=== PATIENT | female | born 1955 | race African-American/Black ===

== ENCOUNTER → 2016-05-14 | Outpatient (CLI) | payer BC, OTHER ==
[~2016-05-14] MED LIST: "\\\"BP MED\\\""; ARIXTRA10 MG/0.8 SQ; ARTHROTEC 751 TAB.E2; BENICAR; BENICAR20 MG PO; CARDURA PO; CARDURA4 M1; CARDURA4 M1 PO; CIPRO PO; COUMADIN5 MG PO; IMODIUM A-D1 MG/5 ML PO; INDAPAMIDE1.25 MG PO; LOPERAMIDE HCL2 M1; LOZOL; LOZOL PO; MILK OF MAGNESIA PO; NORCO 5/325 TAB1 TAB PO; NORVASC; NORVASC PO; NORVASC10 MG PO; PROMETHAZI6.25 MG/5; ROBITUSSIN-DM118 M1 PO; TYLENOL325 M1 PO
--- NOTE | ~2016-05-14 | MY8 ---
[facility] A Service of [facility] RADIOLOGY TEXT RESULTS PATIENT: JONNA MARISCAL LOCATION: [facility] : 53 UNIT #: [id number] AGE: [address]: Chai Reid MD SEX: F ORDER DR: [id number] [facility]. [place], [place] [address] [id number] O MR#: [id number] #: [id number] NAME: JONNA MARISCAL : 1955 SEX: F STUDY DATE/TIME: 05/14/2016 12:53 UNIT: [facility] ROOM: STUDY DESCRIPTION: MY Mammogram Dx Dig Rt Attending Physician: Chai Reid Sr., M.D. Ordering Physician: Chai Reid Sr., M.D. Primary Care Physician: Chai Reid Sr., M.D. MEDICAL IMAGING REPORT This report is preliminary unless electronic signature is present EXAM Right unilateral digital diagnostic mammogram with CAD. DATE OF EXAM 05/14/2016 INDICATIONS Follow up of a probably benign hematoma in the medial upper right breast. No current problems. No personal or family history of breast cancer. TECHNIQUE CC, MLO and true lateral views of the right breast were obtained and reviewed with an FDA-approved CAD device. COMPARISON 09/12/2015, 06/23/2014, 01/11/2013. FINDINGS The probably benign hematoma in the posterior medial upper right breast has resolved in the interval. This is most characteristic of resolution of a hematoma and most characteristic of a benign process. There are scattered fibroglandular densities in the right breast. There is no new dominant nodule mass or suspicious clustered microcalcifications. Benign intramammary node anterior to the pectoralis muscle on the right. The patient should return for a screening mammogram in August of 2016 to return to an annual screening schedule. Findings and recommendations were discussed with the patient here in the department, she voiced understanding and agreement. Targeted ultrasound was not thought to offer additional diagnostic benefit and therefore was not performed, given resolution of the abnormality mammographically. [facility] A Service [facility] RADIOLOGY TEXT RESULTS PATIENT: JONNA MARISCAL LOCATION: [facility] : 53 UNIT #: [id number] AGE: [address]: Chai Reid MD SEX: F ORDER DR: NANCY The 16 x 31 mm density in the medial upper posterior right breast has resolved compared to the prior study most characteristic of a resolved hematoma given the history of trauma. The right breast is otherwise negative. Return to an annual screening schedule is recommended with a screening mammogram bilaterally in August of 2016. See discussion above. Patients over the age of 40 are entered into a reminder system with target due date for the next mammogram. A result letter will also be sent to the patient. BIRADS: 2 Benign findings. Dictated by... Rj Coronado M.D. THIS IS AN ELECTRONICALLY VERIFIED REPORT Rj Coronado M.D. at 05/15/2016 10:17 AM Caro TD: 05/14/2016 17:09 JOB #: [id number] MEDICAL IMAGING REPORT COPY
== END | disposition home or self-care (01) ==
LOC: CMAM 11:54
DX: R92.8 Other abnormal and inconclusive findings on diagnostic imaging of breast (principal)
CPT/HCPCS: G0206